=== PATIENT | female | born 1970 | race African-American/Black ===

== ENCOUNTER 2020-01-15 05:10 | Inpatient (IN) | payer OTHER ==
[2020-01-11 17:04] VITALS: BMI 24.2
[2020-01-15] MEDS ORDERED: CEFAZOLIN 1 GM in DEXTROSE 5%-WATER - 50 ML IVPB ONE (07:04)
[2020-01-15] MEDS ORDERED: DEXAMETHASONE SOD PHOSPHATE/PF 10 MG/ML SDV ONE (12:01)
[2020-01-15] MEDS ORDERED: MIDAZOLAM HCL 2 MG/2 ML SINGLE DOSE VIAL ONE ×3 (12:02→12:27)
[2020-01-15] MEDS ORDERED: ROCURONIUM BROMIDE 50 MG/5 ML SYRINGE ONE ×2 (12:27→14:09)
[2020-01-15] MEDS ORDERED: PROPOFOL 20 ML ONE ×2 (12:27→15:23)
[2020-01-15] MEDS ORDERED: SUCCINYLCHOLINE CHLORIDE 200 MG/10 ML SYRINGE ONE (12:28)
--- NOTE | 2020-01-15 12:42 | HP ---
History & Physical Update - History History: No Change - Physical Physical: No Change - Assessment Assessment: No Change - Plan Plan: No Change Currently as noted:: JUSTYNA, possible removal of one or both ovaries.
[2020-01-15] MEDS ORDERED: ceFAZolin SODIUM 1 GM VIAL IVPB ONE ×2 (13:00→13:05)
[2020-01-15] MEDS ORDERED: DEXAMETHASONE SOD PHOSPHATE 4 MG/1 ML VIAL ONE (15:35)
[2020-01-15] MEDS ORDERED: KETOROLAC TROMETHAMINE 30 MG/1 ML VIAL ONE (15:35)
[2020-01-15] MEDS ORDERED: LIDOCAINE HCL/PF 2% SDV 5ML VIAL ONE (15:35)
[2020-01-15] MEDS ORDERED: ceFAZolin SODIUM 1 GM VIAL ONE ×2 (15:35→20:26)
[2020-01-15] MEDS ORDERED: NEOSTIGMINE METHYLSULFATE 0.5 MG/ML - 10 ML MDV ONE (15:53)
[2020-01-15] MEDS ORDERED: HYDROmorphone HCl 2 MG/ML VIAL ONE (16:03)
[2020-01-15] MEDS: HYDROmorphone HCL CARPU-JECT 2 MG/1 ML DISP.SYRIN IVPUSH ONE ×2 (16:05→16:20)
--- NOTE | 2020-01-15 16:06 | OP ---
Operative Note - Note: Operative Date: 01/15/20 Pre-Operative Diagnosis: Leiomyomas Operation: Open abdominal hysterectomy with bilateral salpingectomy Post-Operative Diagnosis: Same as Pre-op Surgeon: Ирина Cadena Retail Financial Analyst: Kade Fox Anesthesiologist/BRUSHING MACHINE OPERATOR: Cindy Baig MD Anesthesia: General Specimens Removed: Leiomyomas, uterus and tubes Estimated Blood Loss (mls): 560 Drains, Volume Out (mls): 200 Fluid Volume Replaced (mls): 3,000 Operative Report Dictated: Yes
--- NOTE | 2020-01-15 16:07 | SURG ---
Surgery Seedling Sorter Note Seedling Sorter: Kade Fox PA-C Date of Service: 01/15/20 Diagnosis: Uterine fibroids Procedure: Open abdominal total hysterectomy with bilateral salpingectomy I was present for the entirety of the operative procedure. For further detail, please refer to operative report. Visit type - Case Type Case Type: Scheduled - New patient This patient is new to me today: Yes Date on this admission: 01/15/20
[2020-01-15] MEDS ORDERED: ONDANSETRON 4 MG/2 ML VIAL IVPUSH PRN (16:09)
[2020-01-15] MEDS ORDERED: HYDROmorphone HCl 2 MG/ML VIAL IVPUSH ONE (16:13)
[2020-01-15] MEDS ORDERED: DOCUSATE SODIUM 100 MG CAPSULE (FP) PO PRN (16:13)
[2020-01-15] MEDS ORDERED: ACETAMINOPHEN 1000 MG/100 ML VIAL (NON FORMULARY) IVPB ONE (16:14)
[2020-01-15] MEDS ORDERED: LORazepam 2 MG/ML SDV VIAL ONE (16:54)
[2020-01-15] MEDS ORDERED: LORazepam 2 MG/ML SDV VIAL IVPUSH ONE (17:44)
[2020-01-15 17:49] LABS: HEMATOCRIT 30.5 % (32.4-45.2); HEMOGLOBIN 9.9 GM/dL (10.7-15.3); MCH 28.3 pg (25.7-33.7); MCHC 32.6 g/dl (32.0-36.0); MEAN CELL VOLUME 86.7 fl (80-96); MEAN PLT VOLUME 8.5 fl (7.5-11.1); PLATELET COUNT 176 K/MM3 (134-434); RBC 3.51 M/mm3 (3.60-5.2); RDW 14.6 % (11.6-15.6); WHITE BLOOD COUNT 7.4 K/mm3 (4.0-10.0)
[2020-01-15] MEDS ORDERED: ACETAMINOPHEN 325 MG TABLET (FP) PO PRN (18:30)
[2020-01-15] MEDS ORDERED: oxyCODONE HCL 5 MG TABLET PO PRN (18:30)
[2020-01-15] MEDS ORDERED: ACETAMINOPHEN INJECTION 100 ML IVPB ONE (20:10)
[2020-01-15] MEDS: CEFAZOLIN 1 GM in DEXTROSE 5%-WATER - 50 ML IVPB SCH (20:30)
[2020-01-15] MEDS: LACTATED RINGERS SOLUTION 1,000 ML IV SCH (22:39)
[2020-01-15] MEDS ORDERED: CEFAZOLIN 1 GM in DEXTROSE 5%-WATER - 50 ML IVPB SCH (23:00)
[2020-01-16] MEDS ORDERED: DEXTROSE 5%-WATER - 50 ML IVPB ONE (05:15)
[2020-01-16] MEDS ORDERED: ceFAZolin SODIUM 1 GM VIAL ONE (05:15)
[2020-01-16] MEDS: CEFAZOLIN 1 GM in DEXTROSE 5%-WATER - 50 ML IVPB SCH (05:15)
[2020-01-16] MEDS: HYDROmorphone HCl 2 MG/ML VIAL IVPB PRN ×2 (08:04→14:26)
[2020-01-16 08:22] LABS: HEMATOCRIT 28.7 % (32.4-45.2); HEMOGLOBIN 9.3 GM/dL (10.7-15.3); MCH 28.1 pg (25.7-33.7); MCHC 32.6 g/dl (32.0-36.0); MEAN CELL VOLUME 86.2 fl (80-96); MEAN PLT VOLUME 8.6 fl (7.5-11.1); PLATELET COUNT 185 K/MM3 (134-434); RBC 3.33 M/mm3 (3.60-5.2); RDW 14.3 % (11.6-15.6); WHITE BLOOD COUNT 10.4 K/mm3 (4.0-10.0)
[2020-01-16 08:37] LABS: BLOOD UREA NITROGEN 5.1 mg/dL (7-18); CALCIUM 7.5 mg/dL (8.5-10.1); CREATININE 0.5 mg/dL (0.55-1.3); POTASSIUM 3.9 mmol/L (3.5-5.1)
[2020-01-16] MEDS ORDERED: ACETAMINOPHEN 325 MG TABLET (FP) PO PRN (09:19)
--- NOTE | 2020-01-16 09:24 | PN ---
Progress Note (short form) - Note Progress Note: POD 1, s/p Open abdominal hysterectomy with bilateral salpingectomy Pt seen and examined. Reports she is having "severe pain" this morning. Has not taken any pain meds overnight. Has not been oob, champagne in place. Has not eaten or drank. Denies cp/sob,, n/v/d. Vital Signs Temp 98.7 F 01/16/20 06:00 Pulse 86 01/16/20 06:00 Resp 18 01/16/20 06:00 BP 109/55 L 01/16/20 06:00 Pulse Ox 99 01/16/20 06:00 Intake & Output 01/15/20 01/15/20 01/16/20 11:59 23:59 11:59 Intake Total 4200 925 Output Total 2060 500 Balance 2140 425 Intake: IV 4100 875 Lactated Ringers Solution 300 875 1,000 ml @ 125 mls/hr IV ASDIR ROMEO Rx#: [id number] IVPB 100 50 Output: Urine 1500 500 Champagne 200 500 Estimated Blood Loss 560 Other: Voiding Method Toilet Indwelling Catheter Indwelling Catheter Bowel Movement No No CBC, BMP 01/16/20 07:05 01/16/20 07:05 Gen: awake, alert, nad Resp: unlabored on RA Abdo: soft, minimally distended, +ttp at incision, appropriate to status. d ressing c/d/i. Hypoactive bowel sounds. Ext: No edema, no ttp in b/l calf, scds in place and on A/P: 49 y/o F w/ PMHx Leiomyomas now s/p elective Open abdominal hysterectomy with bilateral salpingectomy. afebrile, vss h/h noted uop 700ml since OR -pain meds adjusted: tylenol po 650 mg scheduled with alternating Toradol 15mg iv, oxycodone 5mg q4hrs prn, dilaudid 2mg ivp prn -dvt prophylaxis with lovenox 40mg qd, b/l scds -oob to chair w/ assist later today -champagne out when ambulating, await tov -cbc tomorrow -bowel regimen -zofran prn n/v -regular diet d/w attending Dr Cadena
[2020-01-16] MEDS: LACTATED RINGERS SOLUTION 1,000 ML IV SCH (09:31)
--- NOTE | 2020-01-16 10:22 | OP ---
DATE OF OPERATION: 01/15/2020 PREOPERATIVE DIAGNOSIS: A 40-week myomatous uterus. POSTOPERATIVE DIAGNOSIS: A 40-week myomatous uterus. PROCEDURE: Total abdominal hysterectomy, bilateral salpingectomy. SURGEON: Ирина Cadena MD LITHOGRAPHIC ARTIST: EMMANUELLE Kelly ANESTHESIA: General endotracheal. ESTIMATED BLOOD LOSS: 600 mL COMPLICATIONS: None. INDICATIONS: This is a 49-year-old 0 with history of a large fibroid uterus. She reported heavy menses twice a month with dysmenorrhea. Pelvic ultrasound on December 12, 2019, showed the uterus to be 10.5 x 7.6 x 5.3 cm with multiple fibroids, largest measuring 10.2 cm and another measuring 9.1 cm and a right pedunculated myoma 6.4 cm, endometrial cavity with multiple myomas. Bilateral ovaries were not able to be visualized. Pap smear on December 05, 2019, was negative. High-risk HPV was negative. Endometrial biopsy was performed on December 26, 2019, and was negative. Patient was counseled regarding surgical management. She was advised that after hysterectomy would not be possible. Risks, benefits, indications and alternatives were discussed with the patient. All questions were answered. Informed consent was signed. FINDINGS: Uterus approximately 40-week size extended all the way to the right diaphragm with a large pedunculated myoma on that side measuring approximately 15 cm. There were multiple subserosal myomas and a large posterior myoma filling the cul-de-sac. The bilateral tubes and ovaries appeared normal. There was no evidence of endometriosis. There was no other disease in the abdomen and pelvis. PROCEDURE: The patient was taken to the operating room, placed in the dorsal supine position. General endotracheal anesthesia was obtained without difficulty. She was prepped and draped in the normal sterile fashion. Morejon catheter was placed in the bladder. Pfannenstiel skin incision was made. This was carried down to the underlying fascia. Fascia was opened in the midline and extended laterally. The rectus muscles were dissected off the fascia. The peritoneum was entered sharply with Metzenbaum scissors. This incision was extended inferiorly and superiorly with excellent visualization of the bladder and the bowel well below. An Otf retractor was placed. We were unable to exteriorize the uterus due to its very large size. The left round ligament was suture ligated and divided. The retroperitoneum was opened. The left ureter was identified and well away from the field of dissection. The bladder flap was created anteriorly, dissecting the bladder off the anterior cervix. The left uterine arteries were skeletonized. They were clamped, transected and suture ligated. A fibroid on the left which was subserosal was grasped with towel clamp and exteriorized and removed. Multiple other large fibroids were grasped and removed as well to help exteriorize the uterus. At the fundus there was a large pedunculated myoma on a stalk approximately 3 cm. This was cauterized and divided and, therefore, the uterus was able to be exteriorized and the large fibroid mass in the right upper quadrant was removed and handed off the field. The uterus at this point was able to be exteriorized. The uterine artery on the right was clamped, transected and suture ligated with 0 Vicryl. Cardinal ligaments were serially clamped, transected and suture ligated. The uterosacral ligaments were clamped, transected and suture ligated. The bladder was dissected off the anterior cervix and upper vagina. Two strongly curved Zeppelin clamps were placed distally across the cervix. Please note that the mesosalpinx was clamped and divided bilaterally with the LigaSure, dissecting the fimbriae off the ovary and the mesosalpinx was clamped and divided with the LigaSure. The utero-ovarian ligaments were clamped, cauterized and transected with the LigaSure device. Two strongly curved Zeppelin clamps were placed distally across the cervix. Uterus, cervix and bilateral tubes were handed off the field. The vaginal cuff angles were closed in a Heriberto stitch using 0 Vicryl. The remainder of the vaginal cuff was closed in a running locked fashion using 0 Vicryl. The pedicles were examined of the bilateral ovaries and they were again cauterized using the LigaSure device. Excellent hemostasis was seen. All pedicles were examined and noted to be hemostatic. The pelvis and the abdomen were thoroughly irrigated with saline, noted to be hemostatic. Surgicel was placed on the vaginal cuff and pedicles for added assurance. All instruments were removed from the patient's abdomen as well as the Otf retractor which had been removed prior to exteriorizing the uterus. Sponge, needle, instrument counts were correct x2. The peritoneum was closed in a running continuous fashion using 2-0 Vicryl. Fascia was closed in a running continuous fashion using 0 Vicryl. Subcutaneous fat was irrigated with saline and noted to be hemostatic. Hemostasis was achieved using the Bovie electrocautery in the fat. The skin was closed with 4-0 V-Loc in a subcutaneous fashion. Dermabond was applied. The patient was extubated and transferred in stable condition to the PACU. Asif Cat/[id number] MTDDeepika
[2020-01-16] MEDS: PANTOPRAZOLE SODIUM 40 MG VIAL IVPUSH SCH (10:45)
[2020-01-16] MEDS: KETOROLAC TROMETHAMINE 15 MG/ML VIAL IVPUSH SCH ×3 (10:55→23:24)
[2020-01-16] MEDS: ENOXAPARIN NA (PORCINE) 30 MG/0.3 ML DISP.SYRIN SQ SCH (13:52)
[2020-01-16] MEDS: ACETAMINOPHEN 325 MG TABLET (FP) PO SCH (18:16)
[2020-01-16] MEDS: oxyCODONE HCL 5 MG TABLET PO PRN (20:18)
[2020-01-17] MEDS: ACETAMINOPHEN 325 MG TABLET (FP) PO SCH ×3 (00:15→10:26)
[2020-01-17] MEDS: KETOROLAC TROMETHAMINE 15 MG/ML VIAL IVPUSH SCH ×3 (06:11→14:46)
[2020-01-17] MEDS: oxyCODONE HCL 5 MG TABLET PO PRN (08:07)
--- NOTE | 2020-01-17 08:21 | DS ---
Physical Exam: SUBJECTIVE: Patient seen and examined OBJECTIVE: Vital Signs Temperature 98.0 F 01/17/20 08:16 Pulse Rate 84 01/17/20 08:16 Respiratory Rate 18 01/17/20 08:16 Blood Pressure 113/71 01/17/20 08:16 O2 Sat by Pulse Oximetry (%) 100 01/17/20 08:16 PHYSICAL EXAM GENERAL: The patient is awake, alert, and fully oriented, in no acute distress. HEAD: Normal with no signs of trauma. EYES: PERRL, extraocular movements intact, sclera anicteric, conjunctiva clear. ENT: Ears normal, nares patent, oropharynx clear without exudates, moist mucous membranes. NECK: Trachea midline, full range of motion, supple. LUNGS: Breath sounds equal, clear to auscultation bilaterally, no wheezes, no crackles, no accessory muscle use. HEART: Regular rate and rhythm, S1, S2 without murmur, rub or gallop. ABDOMEN: Soft, mild incisional tenderness lower abd, nondistended, no guarding, no rebound, no hepatosplenomegaly, no masses, Incision clean with no erythema or discharge. EXTREMITIES: warm, well-perfused, no edema. NEUROLOGICAL: Cranial nerves II through XII grossly intact. Normal speech, gait not observed. PSYCH: Normal mood, normal affect. SKIN: Warm, dry, normal turgor, no rashes or lesions noted. LABS CBC,CMP WBC 10.4 K/mm3 (4.0-10.0) H 01/16/20 07:05 RBC 3.33 M/mm3 (3.60-5.2) L 01/16/20 07:05 Hgb 9.3 GM/dL (10.7-15.3) L 01/16/20 07:05 Hct 28.7 % (32.4-45.2) L 01/16/20 07:05 MCV 86.2 fl (80-96) 01/16/20 07:05 MCH 28.1 pg (25.7-33.7) 01/16/20 07:05 MCHC 32.6 g/dl (32.0-36.0) 01/16/20 07:05 RDW 14.3 % (11.6-15.6) 01/16/20 07:05 Plt Count 185 K/MM3 (134-434) 01/16/20 07:05 MPV 8.6 fl (7.5-11.1) 01/16/20 07:05 Sodium 140 mmol/L (136-145) 01/16/20 07:05 Potassium 3.9 mmol/L (3.5-5.1) 01/16/20 07:05 Chloride 109 mmol/L (98-107) H 01/16/20 07:05 Carbon Dioxide 19 mmol/L (21-32) L 01/16/20 07:05 Anion Gap 12 MMOL/L (8-16) 01/16/20 07:05 BUN 5.1 mg/dL (7-18) L 01/16/20 07:05 Creatinine 0.5 mg/dL (0.55-1.3) L 01/16/20 07:05 Est GFR (CKD-EPI)AfAm 132.65 01/16/20 07:05 Est GFR (CKD-EPI)NonAf 114.45 01/16/20 07:05 Random Glucose 69 mg/dL (74-106) L 01/16/20 07:05 Calcium 7.5 mg/dL (8.5-10.1) L 01/16/20 07:05 Serum , Qual Negative 01/15/20 09:38 HOSPITAL COURSE: Date of Admission:01/15/20 Date of Discharge: 01/17/20 The patient was admitted to the Med-Surg Unit after an elective repair of her leiomyomas/pelvic pain. Now, s/p open abdominal hysterectomy. Pain management was achieved with a narcotic and non-narcotic oral and IV regimen. POD #1, the patient passed flatus and diet was advanced. Hemoglobin and hematocrit were monitored as well as vitals and remained stable throughout admission. Erika-operative IV ABX were administered. DVT prophylaxis was achieved with Lovenox 40mg qd, SCDs and early ambulation. The patient ambulated the halls without issue. Narcotic scripts were checked with [facility] ASSOCIATE PROFESSOR PHYSICIAN prior to escribe. The discharge instructions and an oral pain management plan were reviewed with the patient. All questions answered. Above plan discussed with Dr. Huerta and agreed. Minutes to complete discharge: 20
[2020-01-17] MEDS: ENOXAPARIN NA (PORCINE) 30 MG/0.3 ML DISP.SYRIN SQ SCH (09:07)
[2020-01-17] MEDS: PANTOPRAZOLE SODIUM 40 MG VIAL IVPUSH SCH (09:22)
[2020-01-17] MEDS ORDERED: FERROUS SO4 325 MG TABLET (FP) PO SCH (10:00)
[2020-01-17 13:49] VITALS: BP 98/54; PULSE 82; TEMP 99.2
--- NOTE | 2020-01-17 16:37 | PATH ---
Surgical Pathology Report Patient Name: JAMEL LUBIN [facility]. Rec. #: [id number] /Age/Gender: 1970 (Age: 49) / F Account: [id number] Location: [address] [place] [address]/[facility] Taken: 01/15/2020 Received: 01/16/2020 Reported: 01/17/2020 Physicians: Ирина Cadena MD Specimen(s) Received A: UTERUS AND CERVIX AND BILATERAL FALLOPIAN TUBES B: FIBROID Clinical History Fibroid uterus Final Diagnosis A. UTERUS, CERVIX, BILATERAL FALLOPIAN TUBES, HYSTERECTOMY AND SALPINGECTOMY: LEIOMYOMATA. PROLIFERATIVE TYPE ENDOMETRIUM. CERVIX WITH SQUAMOUS METAPLASIA. LEFT FALLOPIAN TUBE WITH FOCAL CALCIFICATION IN THE STROMA. RIGHT FALLOPIAN TUBE WITH NO SIGNIFICANT PATHOLOGIC CHANGE. B. FIBROIDS, EXCISION: LEIOMYOMAS, 2201 G. Electronically Signed Tariq Slater M.D. Gross Description A. Received in formalin labeled "uterus, cervix, bilateral fallopian tubes," is a 1827 g uterus with an attached cervix and bilateral attached fallopian tubes. The specimen measures 17 cm from superior to inferior, 15 cm from anterior to posterior and 12.5 cm from left to right. The serosa is osborne-pink with a large focal defect and multiple bulging subserosal nodules. The attached cervix measures 4 cm in length and averages 2.2 cm in diameter. The ectocervix is osborne, smooth and glistening. The endocervix is unremarkable. The endometrial cavity measures 5 cm in length and averages 2.7 cm from cornu to cornu. The endometrium is red and averages 0.1 cm in thickness. The myometrium displays abundant intramural nodules, measuring up to 6.5 cm in greatest dimension. The cut surface of the nodules is osborne and rubbery with whorled architecture. No areas of hemorrhage or necrosis are identified. The remaining myometrium is osborne-pink and measures up to 8.0 cm in thickness. The left fimbriated fallopian tube measures 5.5 cm in length and displays a 0.7 cm greatest dimension paratubal cyst. The remaining outer surface is barerto purple and smooth. Sectioning reveals an unremarkable lumen. The right fimbriated fallopian tube measures 7.5 cm in length. The outer surface is barreto purple and smooth. Sectioning reveals an unremarkable lumen. Student Life Advisor sections are submitted in 18 cassettes as follows: 1-anterior cervix; 2-posterior cervix; 9-3-uzqdxxnf endomyometrium; 8-0-jxtyckjcw endomyometrium; 4-5-rwabxfpzyf nodules; 1-73-mdvfzco intramural nodule; 45-18-svrnowqmlk intramural nodules; 15-left fallopian tube fimbria; 93-tchxv-lzxqrnsk of left fallopian tube; 17-right fallopian tube fimbria; 14-vsdov-wdciyzko of right fallopian tube. B. Received in formalin labeled "fibroids," is a 2201 g aggregate of 9 osborne, firm to rubbery nodules, consistent with fibroids. The nodules range from 2.4-16.0 cm in greatest dimension. Sectioning of the smaller fibroids reveals osborne, rubbery parenchyma with whorled architecture. Sectioning of the largest fibroid displays central degeneration. Student Life Advisor sections are submitted in 10 cassettes as follows: 1-4-smaller fibroids; 6-77-uuahhfo fibroid. 01/16/2020 [facility]01/16/2020
--- NOTE | 2020-01-17 16:45 | PATH ---
Cytology Non-Gynecological Report Patient Name: JAMEL LUBIN [facility]. Rec. #: [id number] /Age/Gender: 1970 (Age: 49) / F Account: [id number] Location: [address] [place] [address]/[facility] Taken: 01/15/2020 Received: 01/16/2020 Reported: 01/17/2020 Physicians: Ирина Cadena MD Specimen(s) Received PELVIC FLUID Clinical History Fibroid uterus Final Diagnosis PELVIC FLUID FOR CYTOLOGY: SATISFACTORY FOR EVALUATION. NEGATIVE FOR MALIGNANT CELLS. REACTIVE MESOTHELIAL CELLS ADMIXED WITH BLOOD. See concurrent pathology report [id number]. Electronically Signed Tariq Slater M.D. Gross Description Approximately 20cc of light brown fluid received fresh. One cytospin And one cellblock prepared.
[2020-01-17] MEDS: HYDROmorphone HCl 2 MG/ML VIAL IVPB PRN (17:00)
[2020-01-17] MEDS ORDERED: diphenhydrAMINE HCL 25 MG CAPSULE (FP) PO ONE (18:45)
== END 2020-01-17 18:55 | disposition home or self-care (01) | DRG 743 ==
LOC: J2C 05:10 → J6S 21:18
PROVIDERS: ADMIT Obstetrics & Gynecology Gynecologic Oncology; ATTEND Obstetrics & Gynecology Gynecologic Oncology
PROC: 0UT70ZZ Resection of Bilateral Fallopian Tubes, Open Approach (ICD-10-PCS; 2020-01-15)
PROC: 0UT90ZZ Resection of Uterus, Open Approach (ICD-10-PCS; principal; 2020-01-15 12:00)
DX: D25.9 Leiomyoma of uterus, unspecified (principal)
CPT/HCPCS: 36415; 80048; 84703; 85027; 86850; 86900; 86901; 86922; 88108; 88305-TC; 88307-TC; 94760; J0131